=== PATIENT | female | born 1990 | race African-American/Black ===

== ENCOUNTER 2018-09-16 11:00 | Emergency (ER) | payer OTHER ==
[~2018-09-16] VITALS: Ht 180.3 cm; Wt 130.2 kg
[2018-09-16 11:06] VITALS: Ht 180.3 cm; Wt 130.2 kg
[2018-09-16 15:21] VITALS: BP 126/74
== END 2018-09-16 15:21 | disposition home or self-care (01) ==
LOC: ED 11:00
DX: S00.03XA Contusion of scalp, initial encounter (principal); S89.82XA Other specified injuries of left lower leg, initial encounter; V49.88XA Car occupant (driver) (passenger) injured in other specified transport accidents, initial encounter; Y93.89 Activity, other specified; Y92.413 State road as the place of occurrence of the external cause; Y99.9 Unspecified external cause status
CPT/HCPCS: Q0162